=== PATIENT | female | born 1950 | race Caucasian/White ===

== ENCOUNTER 2016-12-28 13:58 | Emergency (ER) | payer MEDICARE, BC ==
[2016-12-28] MEDS ORDERED: Adacel (T-DAP) 0.5 ML VIAL ONE (14:37)
--- NOTE | 2016-12-28 15:20 | RAD ---
LEFT HAND 3 VIEWS: HISTORY: A 66-year-old female with left hand pain following a fall on outstretched hand. No fracture or dislocation. Mild degenerative changes. IMPRESSION: Mild degenerative and osteoarthrosis changes without fracture or dislocation. POS: [facility]
== END 2016-12-28 14:57 | disposition home or self-care (01) ==
LOC: BURERS 13:58
DX: S01.81XA Laceration without foreign body of other part of head, initial encounter (principal); Z23 Encounter for immunization; Z87.891 Personal history of nicotine dependence; W01.198A Fall on same level from slipping, tripping and stumbling with subsequent striking against other object, initial encounter
CPT/HCPCS: 12011; 90471; 90715

== ENCOUNTER 2017-01-11 10:47 | Outpatient (CLI) | payer MEDICARE, BC | END 2017-01-11 10:48 | disposition home or self-care (01) | LOC: BURRAD 10:47 | PROVIDERS: ATTEND Physician Assistant | DX: H57.13 Ocular pain, bilateral (principal) | CPT/HCPCS: 70200 ==

== ENCOUNTER 2017-01-22 09:43 | Outpatient (CLI) | payer MEDICARE, BC ==
[2017-01-22 11:01] LABS: #Basophils 0.1 thou/uL (0.0-0.2); #Eosinphils 0.2 thou/uL (0.0-0.7); #Lymphocytes 1.8 thou/uL (1.20-3.40); #Monocytes 0.6 thou/uL (0.11-0.59); #Neutrophils 4.1 thou/uL (1.40-6.50); %Basophils 0.9 % (0.0-1.0); %Eosinophils 2.6 % (0.0-10.0); %Lymphocytes 26.5 % (21.0-51.0); %Monocytes 8.9 % (0.0-10.0); %Neutrophils 61.1 % (42.0-75.0); Hemoglobin 15.2 g/dL (12.0-16.0); Mean Corpuscular HGB CONC 32.6 g/dL (32.0-36.0); Mean Corpuscular Hemoglobin 29.4 pg (27.0-31.0); Mean Corpuscular Volume 90.3 fl (81.0-99.0); Mean Platelet Volume 7.4 fL (7.4-10.4); Platelet Count 214 thou/uL (130-400); RBC Distribution Width 12.3 % (11.5-14.5); Red Blood Cell (RBC) Count 5.16 mill/uL (4.20-5.40); White Blood Cell (WBC) Count 6.6 thou/uL (4.8-10.8)
[2017-01-22 15:53] LABS: ALT (SGPT) 36 U/L (8-55); AST (SGOT) 29 U/L (5-34); Albumin 3.8 g/dL (3.4-4.8); Alkaline Phosphatase 151 U/L (40-150); Anion Gap 17 mmol/L (10-20); BUN (Urea Nitrogen) 11 mg/dL (9.8-20.1); Bilirubin, Total 0.5 mg/dL (0.2-1.2); Calc. Creatinine Clearance 0 mL/min (70-130); Calcium 8.9 mg/dL (7.8-10.44); Carbon Dioxide 20 mmol/L (23-31); Cardiac Risk 6.1 (Less than 4.5); Chloride 107 mmol/L (98-107); Cholesterol 184 mg/dl (< 200 Desired); Estimated GFR-MDRD 67; Globulin 3.2 g/dL (2.4-3.5); Glucose 325 mg/dL (80-115); HDL Cholesterol 30 mg/dL (>60 Neg Risk); Hemoglobin A1c 12.6 % (4.0-6.0); Potassium 4.1 mmol/L (3.5-5.1); Sodium 140 mmol/L (136-145); Triglycerides 437 mg/dL (Less than 150)
== END 2017-01-22 09:44 | disposition home or self-care (01) ==
LOC: HPCALD 09:43
PROVIDERS: ATTEND Physician Assistant
DX: E11.65 Type 2 diabetes mellitus with hyperglycemia (principal); R53.83 Other fatigue
CPT/HCPCS: 36415; 80053; 80061; 83036; 84443; 85025

== ENCOUNTER 2021-07-28 11:57 | Inpatient (IN) | payer MEDICARE, BC ==
[2021-07-28 12:44] LABS: Hemoglobin 13.9 g/dL (12.0-16.0); Mean Corpuscular Hemoglobin 28.2 pg (27.0-31.0); Mean Corpuscular Volume 85.2 fL (78.0-98.0); Mean Platelet Volume 6.4 fL (7.4-10.4); Platelet Count 568 thou/uL (130-400); RBC Distribution Width 12.6 % (11.5-14.5); Red Blood Cell (RBC) Count 4.93 mill/uL (4.20-5.40); White Blood Cell (WBC) Count 25.9 thou/uL (4.8-10.8)
[2021-07-28 12:48] LABS: Bilirubin Moderate (Negative); Blood, Urine Large (Negative); Clarity Cloudy (Clear); Glucose, Urine (Dipstick) 100 mg/dL (Negative); Ketone, Urine 15 mg/dL (Negative); Leukocyte Negative (Negative); Nitrite Negative (Negative); Protein, Urine (Dipstick) > or equal to 300 mg/dL (Neg-Trace); pH, Urine 5.5 (5.0-9.0)
[2021-07-28 12:49] LABS: Specific Gravity, Urine 1.028 (1.002-1.036)
[2021-07-28 12:58] LABS: ALT (SGPT) 21 U/L (8-55); AST (SGOT) 20 U/L (5-34); Albumin 3.7 g/dL (3.4-4.8); Alkaline Phosphatase 75 U/L (40-110); Anion Gap 16 mmol/L (10-20); BUN (Urea Nitrogen) 20 mg/dL (9.8-20.1); Bilirubin, Total 0.7 mg/dL (0.2-1.2); Calc. Creatinine Clearance 0 mL/min (70-130); Calcium 10.5 mg/dL (7.8-10.44); Carbon Dioxide 24 mmol/L (23-31); Chloride 103 mmol/L (98-107); Globulin 5.3 g/dL (2.4-3.5); Glucose 233 mg/dL (83-110); Potassium 3.1 mmol/L (3.5-5.1); Sodium 140 mmol/L (136-145)
[2021-07-28 13:01] LABS: Bacteria/HPF 4+ HPF (None Seen); Mucous/LPF 1+ LPF (<2+); RBC/HPF 21-50 HPF (0-3); Squamous Epithelial 0-3 HPF (0-3); Yeast-Budding 1+ HPF (None Seen)
[2021-07-28 13:12] LABS: Band 4 % (5-11); Lymphocytes 1 % (21-51); MDiff Complete? YES; Monocytes 7 % (0-10); Neutrophil 88 % (42-75); Toxic Granulation SLIGHT; Vacuoles SLIGHT
[2021-07-28 15:22] LABS: Lactic Acid 1.5 mmol/L (0.5-2.2)
[2021-07-28 15:40] LABS: SARS-CoV-2 NAA Rapid Test DETECTED (NotDetected)
[2021-07-28] MEDS ORDERED: Potassium Chloride 20 MEQ TAB ONE (15:50)
[2021-07-28] MEDS ORDERED: Acetaminophen 325 MG TAB PO PRN ×2 (17:05→17:15)
[2021-07-28] MEDS ORDERED: Dextrose 5 %-0.45 % NaCl 1,000 ML IV SCH (17:15)
[2021-07-28] MEDS ORDERED: Ondansetron ODT 4 MG TAB SL PRN (17:15)
[2021-07-28] MEDS ORDERED: Ondansetron PF 4 MG/2 ML Vial IVP PRN (17:15)
[2021-07-28] MEDS: cefTRIAXone\\ROCEPHIN 1 GM in Sodium Chloride 0.9% 100 ML IVPB SCH (17:44)
[2021-07-28] MEDS: metFORMIN 500 MG TAB PO SCH (17:46)
[2021-07-28] MEDS: methylPREDNISolone Sod Succ 40 MG VIAL IVP SCH (18:15)
[2021-07-28] MEDS: Famotidine 20 MG TAB PO SCH (21:38)
[2021-07-28] MEDS: Atorvastatin Calcium 10 MG TAB PO SCH (21:38)
[2021-07-29 05:04] LABS: #Basophils 0.1 thou/uL (0.0-0.2); #Lymphocytes 0.9 thou/uL (1.20-3.40); #Monocytes 0.4 thou/uL (0.11-0.59); #Neutrophils 16.8 thou/uL (1.40-6.50); %Basophils 0.3 % (0.0-1.0); %Lymphocytes 4.8 % (21.0-51.0); %Monocytes 2.4 % (0.0-10.0); %Neutrophils 92.6 % (42.0-75.0); Hemoglobin 12.5 g/dL (12.0-16.0); Mean Corpuscular HGB CONC 33.9 g/dL (32.0-36.0); Mean Corpuscular Hemoglobin 28.4 pg (27.0-31.0); Mean Corpuscular Volume 83.8 fL (78.0-98.0); Mean Platelet Volume 6.5 fL (7.4-10.4); Platelet Count 479 thou/uL (130-400); RBC Distribution Width 12.3 % (11.5-14.5); White Blood Cell (WBC) Count 18.1 thou/uL (4.8-10.8)
[2021-07-29 05:33] LABS: Anion Gap 16 mmol/L (10-20); BUN (Urea Nitrogen) 20 mg/dL (9.8-20.1); Calc. Creatinine Clearance 74 mL/min (70-130); Calcium 9.6 mg/dL (7.8-10.44); Carbon Dioxide 21 mmol/L (23-31); Chloride 104 mmol/L (98-107); Glucose 222 mg/dL (83-110); Potassium 3.9 mmol/L (3.5-5.1); Sodium 137 mmol/L (136-145)
[2021-07-29] MEDS: methylPREDNISolone Sod Succ 40 MG VIAL IVP SCH ×2 (05:42→18:06)
[2021-07-29] MEDS: metFORMIN 500 MG TAB PO SCH ×2 (08:51→18:07)
[2021-07-29] MEDS: Folic Acid 1 MG TAB PO SCH (08:51)
[2021-07-29] MEDS: Enoxaparin Sodium 40 MG/0.4 ML SYRINGE SC SCH (08:51)
[2021-07-29] MEDS: Lisinopril 10 MG TAB PO SCH (08:52)
[2021-07-29] MEDS ORDERED: Mesalamine [Mesalamine] 1.2 GM Tablet.Dr PO SCH (09:00)
[2021-07-29] MEDS ORDERED: Dextrose 5% in Water 1,000 ML IV PRN (14:45)
[2021-07-29] MEDS ORDERED: HumaLOG 300 UNITS/3 ML VIAL SC PRN (14:45)
[2021-07-29] MEDS ORDERED: Dextrose 50% Abboject 50 ML SYRINGE IVP PRN (14:45)
[2021-07-29 15:18] LABS: Hemoglobin A1c 7.3 % (4.0-6.0)
[2021-07-29] MEDS: cefTRIAXone\\ROCEPHIN 1 GM in Sodium Chloride 0.9% 100 ML IVPB SCH (18:06)
[2021-07-29] MEDS: HumaLOG 300 UNITS/3 ML VIAL SC PRN (18:07)
[2021-07-29] MEDS: Ascorbic Acid 500 mg Chewable Tablet PO SCH (20:22)
[2021-07-29] MEDS: Famotidine 20 MG TAB PO SCH (20:22)
[2021-07-29] MEDS: guaiFENesin ER 600 MG TAB PO SCH (20:22)
[2021-07-29] MEDS: Atorvastatin Calcium 10 MG TAB PO SCH (20:22)
[2021-07-30] MEDS: methylPREDNISolone Sod Succ 40 MG VIAL IVP SCH ×2 (05:21→17:06)
[2021-07-30 05:36] LABS: #Lymphocytes 0.7 thou/uL (1.20-3.40); #Monocytes 0.4 thou/uL (0.11-0.59); #Neutrophils 10.8 thou/uL (1.40-6.50); %Basophils 0.2 % (0.0-1.0); %Lymphocytes 6.2 % (21.0-51.0); %Monocytes 2.9 % (0.0-10.0); %Neutrophils 90.7 % (42.0-75.0); Mean Corpuscular HGB CONC 33.7 g/dL (32.0-36.0); Mean Corpuscular Hemoglobin 28.6 pg (27.0-31.0); Mean Corpuscular Volume 84.8 fL (78.0-98.0); Mean Platelet Volume 7.2 fL (7.4-10.4); Platelet Count 391 thou/uL (130-400); RBC Distribution Width 12.7 % (11.5-14.5); Red Blood Cell (RBC) Count 4.19 mill/uL (4.20-5.40); White Blood Cell (WBC) Count 11.9 thou/uL (4.8-10.8)
[2021-07-30 05:50] LABS: Anion Gap 15 mmol/L (10-20); BUN (Urea Nitrogen) 27 mg/dL (9.8-20.1); Calc. Creatinine Clearance 84 mL/min (70-130); Calcium 9.9 mg/dL (7.8-10.44); Carbon Dioxide 21 mmol/L (23-31); Chloride 105 mmol/L (98-107); Glucose 194 mg/dL (83-110); Potassium 3.8 mmol/L (3.5-5.1); Sodium 137 mmol/L (136-145)
[2021-07-30] MEDS: guaiFENesin ER 600 MG TAB PO SCH ×2 (09:44→20:18)
[2021-07-30] MEDS: metFORMIN 500 MG TAB PO SCH ×2 (09:44→17:06)
[2021-07-30] MEDS: Folic Acid 1 MG TAB PO SCH (09:44)
[2021-07-30] MEDS: Ascorbic Acid 500 mg Chewable Tablet PO SCH ×2 (09:44→20:18)
[2021-07-30] MEDS: Lisinopril 10 MG TAB PO SCH (09:44)
[2021-07-30] MEDS: HumaLOG 300 UNITS/3 ML VIAL SC PRN ×3 (09:45→17:08)
[2021-07-30] MEDS: Enoxaparin Sodium 40 MG/0.4 ML SYRINGE SC SCH (09:45)
[2021-07-30] MEDS: cefTRIAXone\\ROCEPHIN 1 GM in Sodium Chloride 0.9% 100 ML IVPB SCH (17:07)
[2021-07-30] MEDS: Atorvastatin Calcium 10 MG TAB PO SCH (20:18)
[2021-07-30] MEDS: Famotidine 20 MG TAB PO SCH (20:18)
[2021-07-31 05:13] LABS: Hemoglobin 12.1 g/dL (12.0-16.0); Mean Corpuscular HGB CONC 34.2 g/dL (32.0-36.0); Mean Corpuscular Hemoglobin 28.5 pg (27.0-31.0); Mean Corpuscular Volume 83.4 fL (78.0-98.0); Mean Platelet Volume 6.6 fL (7.4-10.4); Platelet Count 439 thou/uL (130-400); RBC Distribution Width 12.1 % (11.5-14.5); Red Blood Cell (RBC) Count 4.24 mill/uL (4.20-5.40); White Blood Cell (WBC) Count 11.4 thou/uL (4.8-10.8)
[2021-07-31 05:15] LABS: Anion Gap 14 mmol/L (10-20); BUN (Urea Nitrogen) 30 mg/dL (9.8-20.1); Calc. Creatinine Clearance 84 mL/min (70-130); Calcium 9.5 mg/dL (7.8-10.44); Carbon Dioxide 22 mmol/L (23-31); Chloride 107 mmol/L (98-107); Glucose 173 mg/dL (83-110); Potassium 3.8 mmol/L (3.5-5.1); Sodium 139 mmol/L (136-145)
[2021-07-31] MEDS: methylPREDNISolone Sod Succ 40 MG VIAL IVP SCH (05:41)
[2021-07-31 06:39] LABS: MDiff Complete? YES
[2021-07-31] MEDS: Folic Acid 1 MG TAB PO SCH (09:12)
[2021-07-31] MEDS: Lisinopril 20 MG TAB PO SCH (09:12)
[2021-07-31] MEDS: Ascorbic Acid 500 mg Chewable Tablet PO SCH ×2 (09:12→20:47)
[2021-07-31] MEDS: metFORMIN 500 MG TAB PO SCH ×2 (09:12→17:36)
[2021-07-31] MEDS: Enoxaparin Sodium 40 MG/0.4 ML SYRINGE SC SCH (09:12)
[2021-07-31] MEDS: guaiFENesin ER 600 MG TAB PO SCH ×2 (09:13→20:47)
[2021-07-31] MEDS: HumaLOG 300 UNITS/3 ML VIAL SC PRN ×2 (12:33→18:24)
[2021-07-31] MEDS: cefTRIAXone\\ROCEPHIN 1 GM in Sodium Chloride 0.9% 100 ML IVPB SCH (17:36)
[2021-07-31] MEDS ORDERED: hydrOXYzine 25 MG TAB PO PRN (19:19)
[2021-07-31] MEDS: Atorvastatin Calcium 10 MG TAB PO SCH (20:47)
[2021-07-31] MEDS: Famotidine 20 MG TAB PO SCH (20:47)
[2021-08-01] MEDS: Enoxaparin Sodium 40 MG/0.4 ML SYRINGE SC SCH (08:46)
[2021-08-01] MEDS: metFORMIN 500 MG TAB PO SCH ×2 (08:46→17:29)
[2021-08-01] MEDS: Folic Acid 1 MG TAB PO SCH (08:46)
[2021-08-01] MEDS: guaiFENesin ER 600 MG TAB PO SCH (08:46)
[2021-08-01] MEDS: Lisinopril 20 MG TAB PO SCH (08:47)
[2021-08-01] MEDS: Ascorbic Acid 500 mg Chewable Tablet PO SCH (08:47)
[2021-08-01] MEDS ORDERED: methylPREDNISolone Sod Succ 40 MG VIAL IVP SCH (09:00)
[2021-08-01] MEDS: cefTRIAXone\\ROCEPHIN 1 GM in Sodium Chloride 0.9% 100 ML IVPB SCH (17:29)
[2021-08-01] MEDS: HumaLOG 300 UNITS/3 ML VIAL SC PRN (17:30)
[2021-08-01 19:06] VITALS: BP 168/72; TEMP 96.8
== END 2021-08-01 20:01 | disposition swing bed (61) | DRG 871 ==
LOC: BURERS 11:57 → UNDOADMIN 13:34 → BURMED 13:34
PROVIDERS: ADMIT Family Medicine; ATTEND Family Medicine
PROC: 8E0ZXY6 Isolation (ICD-10-PCS; principal; 2021-07-28)
DX: A41.9 Sepsis, unspecified organism (principal); J12.82 Pneumonia due to coronavirus disease 2019; U07.1 COVID-19; J13 Pneumonia due to Streptococcus pneumoniae; K51.00 Ulcerative (chronic) pancolitis without complications; N39.0 Urinary tract infection, site not specified; E11.65 Type 2 diabetes mellitus with hyperglycemia; Z88.0 Allergy status to penicillin; Z88.1 Allergy status to other antibiotic agents; Z79.84 Long term (current) use of oral hypoglycemic drugs; Z79.899 Other long term (current) drug therapy; Z90.710 Acquired absence of both cervix and uterus; Z87.891 Personal history of nicotine dependence
CPT/HCPCS: 0241U; 36415; 36416; 71045; 80048; 80053; 81003; 81015; 83036; 83605; 85025; 87040; 87077; 87086; 87149; 87186; J0696; J1650; J1815; J1956; J2920; J3490; J7042

== ENCOUNTER 2021-08-01 20:01 | Inpatient (IN) | payer MEDICARE, BC ==
[2021-08-01 20:10] VITALS: BMI 38.7
[2021-08-01] MEDS ORDERED: Ascorbic Acid 500 mg Chewable Tablet PO SCH (21:30)
[2021-08-01] MEDS ORDERED: Dextrose 50% Abboject 50 ML SYRINGE SLOW IVP PRN (21:36)
[2021-08-01] MEDS ORDERED: hydrOXYzine 25 MG TAB PO PRN ×2 (21:36→21:39)
[2021-08-01] MEDS ORDERED: HumaLOG 300 UNITS/3 ML VIAL SC PRN ×3 (21:36→21:45)
[2021-08-01] MEDS ORDERED: Acetaminophen 325 MG TAB PO PRN ×2 (21:36→21:38)
[2021-08-01] MEDS ORDERED: Ondansetron PF 4 MG/2 ML Vial IVP PRN (21:41)
[2021-08-01] MEDS ORDERED: Ondansetron ODT 4 MG TAB PO PRN (21:42)
[2021-08-01] MEDS ORDERED: Dextrose 5% in Water 1,000 ML IV PRN (21:45)
[2021-08-01] MEDS ORDERED: guaiFENesin ER 600 MG TAB PO SCH (21:45)
[2021-08-01] MEDS ORDERED: Atorvastatin Calcium 10 MG TAB PO SCH (21:45)
[2021-08-01] MEDS ORDERED: Dextrose 50% Abboject 50 ML SYRINGE IVP PRN (21:45)
[2021-08-01] MEDS ORDERED: Famotidine 20 MG TAB PO SCH (21:45)
[2021-08-02] MEDS ORDERED: metFORMIN 500 MG TAB PO SCH (08:00)
[2021-08-02] MEDS: Folic Acid 1 MG TAB PO SCH (08:41)
[2021-08-02] MEDS: Lisinopril 20 MG TAB PO SCH (08:42)
[2021-08-02] MEDS: Ascorbic Acid 500 mg Chewable Tablet PO SCH ×2 (08:42→21:17)
[2021-08-02] MEDS: Mesalamine [Mesalamine] 1.2 GM Tablet.Dr PO SCH (08:43)
[2021-08-02] MEDS: metFORMIN 500 MG TAB PO SCH ×2 (08:43→17:28)
[2021-08-02] MEDS: Enoxaparin Sodium 40 MG/0.4 ML SYRINGE SC SCH (08:43)
[2021-08-02] MEDS ORDERED: Lisinopril 20 MG TAB PO SCH (09:00)
[2021-08-02] MEDS ORDERED: Folic Acid 1 MG TAB PO SCH (09:00)
[2021-08-02] MEDS ORDERED: Ascorbic Acid 500 mg Chewable Tablet PO SCH (09:00)
[2021-08-02] MEDS ORDERED: guaiFENesin ER 600 MG TAB PO SCH (09:00)
[2021-08-02] MEDS: cefTRIAXone\\ROCEPHIN 1 GM VIAL IVPB SCH (17:38)
[2021-08-02] MEDS ORDERED: cefTRIAXone\\ROCEPHIN 1 GM in Sodium Chloride 0.9% 100 ML IVPB SCH (18:00)
[2021-08-02] MEDS ORDERED: guaiFENesin ER 600 MG TAB PO PRN (18:01)
[2021-08-02] MEDS ORDERED: Atorvastatin Calcium 10 MG TAB PO SCH (21:00)
[2021-08-02] MEDS: Atorvastatin Calcium 10 MG TAB PO SCH (21:17)
[2021-08-02] MEDS: Famotidine 20 MG TAB PO SCH (21:17)
[2021-08-03] MEDS: metFORMIN 500 MG TAB PO SCH ×2 (09:09→17:37)
[2021-08-03] MEDS: Folic Acid 1 MG TAB PO SCH (09:09)
[2021-08-03] MEDS: Ascorbic Acid 500 mg Chewable Tablet PO SCH ×2 (09:09→20:24)
[2021-08-03] MEDS: Enoxaparin Sodium 40 MG/0.4 ML SYRINGE SC SCH (09:10)
[2021-08-03] MEDS: Lisinopril 20 MG TAB PO SCH (09:10)
[2021-08-03] MEDS: Mesalamine [Mesalamine] 1.2 GM Tablet.Dr PO SCH (09:11)
[2021-08-03] MEDS: cefTRIAXone\\ROCEPHIN 1 GM VIAL IVPB SCH (17:37)
[2021-08-03 19:30] VITALS: TEMP 98.9
[2021-08-03] MEDS: Famotidine 20 MG TAB PO SCH (20:24)
[2021-08-03] MEDS: Atorvastatin Calcium 10 MG TAB PO SCH (20:24)
[2021-08-04] MEDS: Lisinopril 20 MG TAB PO SCH (08:15)
[2021-08-04] MEDS: Ascorbic Acid 500 mg Chewable Tablet PO SCH (08:15)
[2021-08-04] MEDS: metFORMIN 500 MG TAB PO SCH (08:15)
[2021-08-04] MEDS: Enoxaparin Sodium 40 MG/0.4 ML SYRINGE SC SCH (08:15)
[2021-08-04] MEDS: Folic Acid 1 MG TAB PO SCH (08:15)
[2021-08-04 08:16] VITALS: BP 168/72
[2021-08-04] MEDS: Mesalamine [Mesalamine] 1.2 GM Tablet.Dr PO SCH (08:16)
== END 2021-08-04 15:30 | disposition home or self-care (01) | DRG 948 ==
LOC: BURMED 20:01
PROVIDERS: ADMIT Family Medicine; ATTEND Family Medicine
DX: R53.81 Other malaise (principal); K51.00 Ulcerative (chronic) pancolitis without complications; E11.9 Type 2 diabetes mellitus without complications; Z86.16 Personal history of COVID-19; Z87.01 Personal history of pneumonia (recurrent); Z88.1 Allergy status to other antibiotic agents; Z88.0 Allergy status to penicillin; Z79.899 Other long term (current) drug therapy; Z79.84 Long term (current) use of oral hypoglycemic drugs; Z90.710 Acquired absence of both cervix and uterus; Z87.891 Personal history of nicotine dependence
CPT/HCPCS: 36416; J0696; J1650

== ENCOUNTER 2021-08-10 14:00 | Emergency (ER) | payer MEDICARE, BC ==
[2021-08-10 14:59] LABS: Hemoglobin 12.6 g/dL (12.0-16.0); Mean Corpuscular HGB CONC 32.7 g/dL (32.0-36.0); Mean Corpuscular Hemoglobin 28.1 pg (27.0-31.0); Mean Platelet Volume 7.8 fL (7.4-10.4); Platelet Count 328 thou/uL (130-400); White Blood Cell (WBC) Count 15.8 thou/uL (4.8-10.8)
[2021-08-10 15:03] LABS: Band 6 % (5-11); Lymphocytes 4 % (21-51); MDiff Complete? YES; Monocytes 8 % (0-10); Neutrophil 80 % (42-75); Reactive Lymphocytes 2 % (0-10); Toxic Granulation SLIGHT; Vacuoles SLIGHT
[2021-08-10 15:07] LABS: Bilirubin Small (Negative); Blood, Urine Large (Negative); Clarity Cloudy (Clear); Glucose, Urine (Dipstick) Negative (Negative); Ketone, Urine Trace mg/dL (Negative); Leukocyte Trace (Negative); Nitrite Negative (Negative); Protein, Urine (Dipstick) 100 mg/dL (Neg-Trace); pH, Urine 5.5 (5.0-9.0)
[2021-08-10 15:09] LABS: ALT (SGPT) 19 U/L (8-55); AST (SGOT) 17 U/L (5-34); Albumin 3.6 g/dL (3.4-4.8); Alkaline Phosphatase 64 U/L (40-110); Anion Gap 18 mmol/L (10-20); BUN (Urea Nitrogen) 15 mg/dL (9.8-20.1); Bilirubin, Total 0.5 mg/dL (0.2-1.2); Calc. Creatinine Clearance 0 mL/min (70-130); Calcium 10.1 mg/dL (7.8-10.44); Carbon Dioxide 22 mmol/L (23-31); Chloride 101 mmol/L (98-107); Glucose 107 mg/dL (83-110); Potassium 3.8 mmol/L (3.5-5.1); Protein, Total 7.6 g/dL (5.8-8.1); Sodium 137 mmol/L (136-145)
[2021-08-10 15:13] LABS: Bacteria/HPF 3+ HPF (None Seen); Renal Epithelial 0-3 HPF (None Seen); Squamous Epithelial 0-3 HPF (0-3)
[2021-08-10 15:14] LABS: Mucous/LPF 1+ LPF (<2+)
== END 2021-08-10 16:16 | disposition home or self-care (01) ==
LOC: BURERS 14:00
DX: R41.82 Altered mental status, unspecified (principal); J18.9 Pneumonia, unspecified organism; I10 Essential (primary) hypertension; R00.0 Tachycardia, unspecified; Z87.891 Personal history of nicotine dependence
CPT/HCPCS: 36415; 71045; 80053; 81003; 81015; 83605; 83880; 84484; 85025; 87040; 87086; 93005

== ENCOUNTER 2021-08-12 09:56 | Emergency (ER) | payer MEDICARE, BC ==
[2021-08-12 10:55] LABS: #Basophils 0.1 thou/uL (0.0-0.2); #Eosinphils 0.1 thou/uL (0.0-0.7); #Lymphocytes 1.1 thou/uL (1.20-3.40); #Monocytes 0.7 thou/uL (0.11-0.59); %Basophils 1.1 % (0.0-1.0); %Eosinophils 0.6 % (0.0-10.0); %Lymphocytes 10.8 % (21.0-51.0); %Neutrophils 80.6 % (42.0-75.0); Hemoglobin 11.9 g/dL (12.0-16.0); Mean Corpuscular HGB CONC 32.6 g/dL (32.0-36.0); Mean Corpuscular Hemoglobin 27.9 pg (27.0-31.0); Mean Corpuscular Volume 85.6 fL (78.0-98.0); Mean Platelet Volume 6.8 fL (7.4-10.4); Platelet Count 391 thou/uL (130-400); RBC Distribution Width 13.3 % (11.5-14.5); Red Blood Cell (RBC) Count 4.26 mill/uL (4.20-5.40); White Blood Cell (WBC) Count 9.9 thou/uL (4.8-10.8)
[2021-08-12 10:58] LABS: Bilirubin Negative (Negative); Blood, Urine Large (Negative); Clarity Cloudy (Clear); Glucose, Urine (Dipstick) Negative (Negative); Ketone, Urine Trace mg/dL (Negative); Leukocyte Trace (Negative); Nitrite Negative (Negative); Protein, Urine (Dipstick) 100 mg/dL (Neg-Trace); Urobilinogen 0.2 mg/dL (Less than 2); pH, Urine 5.5 (5.0-9.0)
[2021-08-12 11:05] LABS: Bacteria/HPF 2+ HPF (None Seen); Mucous/LPF 3+ LPF (<2+); Renal Epithelial 0-3 HPF (None Seen)
[2021-08-12 11:16] LABS: ALT (SGPT) 15 U/L (8-55); AST (SGOT) 13 U/L (5-34); Albumin 3.7 g/dL (3.4-4.8); Alkaline Phosphatase 61 U/L (40-110); Anion Gap 18 mmol/L (10-20); BUN (Urea Nitrogen) 8 mg/dL (9.8-20.1); Bilirubin, Total 0.5 mg/dL (0.2-1.2); Calc. Creatinine Clearance 0 mL/min (70-130); Calcium 10.2 mg/dL (7.8-10.44); Carbon Dioxide 22 mmol/L (23-31); Chloride 103 mmol/L (98-107); Glucose 111 mg/dL (83-110); Lipase 15 U/L (8-78); Protein, Total 7.7 g/dL (5.8-8.1); Sodium 139 mmol/L (136-145)
== END 2021-08-12 13:08 | disposition home or self-care (01) ==
LOC: BURERS 09:56
DX: R11.2 Nausea with vomiting, unspecified (principal); Z87.891 Personal history of nicotine dependence
CPT/HCPCS: 36415; 70450; 80053; 81003; 81015; 83605; 83690; 84443; 84484; 85025; 87040; 87086; 96374